=== PATIENT | male | born 1990 | race Caucasian/White ===

== ENCOUNTER 2018-12-08 20:39 | Emergency (ER) | payer MEDICAID, SELFPAY ==
[~2018-12-08] VITALS: Ht 157.5 cm; Wt 67.9 kg
[2018-12-08 20:51] VITALS: BP 132/81
== END 2018-12-08 21:33 | disposition home or self-care (01) ==
LOC: ED 21:25
DX: L03.221 Cellulitis of neck (principal); L98.9 Disorder of the skin and subcutaneous tissue, unspecified
CPT/HCPCS: 99283